=== PATIENT | female | born 1970 | race Caucasian/White ===

== ENCOUNTER 2024-09-06 10:00 | Outpatient (CLI) | payer BC, SELFPAY ==
[2024-09-06 10:26] LABS: Albumin Level 4.7 g/dL (3.5-5.1); Alkaline Phosphatase 85 U/L (38-126); Anion Gap 3 mmol/L (4-12); Aspartate Amino Transferase 20 U/L (14-36); Bilirubin,Total 0.8 mg/dL (0.2-1.3); Blood Urea Nitrogen 13 mg/dL (7-17); Calcium 9.7 mg/dL (8.4-10.2); Carbon Dioxide 30 mmol/L (22-30); Chloride 106 mmol/L (98-107); Cholesterol 181 mg/dL (0-200); Estimated Glomerular Filt Rate > 60; Glucose 104 mg/dL (65-110); HDL Direct 75 mg/dL; Sodium 139 mmol/L (137-145); Triglycerides 88 mg/dL (<150)
[2024-09-06 10:27] LABS: Alanine Aminotransferase < 6 U/L (6-35)
[2024-09-06 10:38] LABS: LDL Cholesterol Direct 64 mg/dL
[2024-09-06 11:02] LABS: Free T4 Free Thyroxine 1.31 ng/dL (0.78-2.19)
== END 2024-09-06 10:01 | disposition home or self-care (01) ==
LOC: ANHLAB 10:02
PROVIDERS: PCP Family Medicine; Visit Provider Student in an Organized Health Care Education/Training Program
DX: G20.A1 Parkinson's disease without dyskinesia, without mention of fluctuations (principal); Z00.00 Encounter for general adult medical examination without abnormal findings; Z13.220 Encounter for screening for lipoid disorders; R63.5 Abnormal weight gain
CPT/HCPCS: 36415; 80053; 80061; 84439; 84443

== ENCOUNTER 2024-12-11 01:07 | Day surgery (SDC) | payer BC, SELFPAY ==
[2024-12-04 08:21] VITALS: BMI 27.6
--- OUTSIDE RECORDS SUMMARY | 2024-12-11 01:10 | XMS_ITS | Clinical Summary ---
Author Organization [facility] [place] Address [address] [place] [address] Care Team Providers Care Director Of Materials Management Name Role Phone Zenaida Bunch MD Primary Care Provider [phone] Jeannette Bernal DPT Unavailable [phone] Allergies Active Allergy Reactions Criticality Noted Date Comments Penicillins Unknown 05/15/2020 Reaction as a child, unknown reaction Medications rOPINIRole (REQUIP) 0.25 mg tablet Take 1 tablet (0.25 mg total) by mouth 2 (two) times a day 180 tablet 1 4 Active carbidopa-levodop a (SINEMET) 25-100 mg per tabletIndications :Parkinsonism Take 2 tablets by mouth 4 (four) times a day 720 tablet 3 4 Active acetaminophen (TYLENOL) 325 mg tabletIndications :Fever,Pain Take 2 tablets (650 mg total) by mouth every 4 (four) hours as needed for pain 4 Active amantadine (SYMMETREL) 100 mg capsuleIndication s:Idiopathic Parkinsonism Take 1 capsule (100 mg total) by mouth 3 (three) times a day 270 capsule 1 4 Active Active Problems Problem Noted Date Diagnosed Date S/P deep brain stimulator placement 06/27/2024 Assessment & Plan (11/06/2024 10:41 AM ALUMINUM MOLDING MACHINE OPERATOR): Ms. Silvia Heath is a 54 y.o. 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 In addition she had walking, hypophonia, hypomimia, and micrographia. She first developed asymmetric resting tremor in 2007 followed over the next few years by action tremor, bradykinesia, rigidity, hypophonia, hypomimia, and micrographia. She was diagnosed with IPD in 2008 and was prescribed carbidopa/levodopa IR 25/100 and ropinirole 1 mg with good response. In 2019, she developed motor fluctuations with wearing off that affected her ADLs and ability to work. At the time of this evaluation, the motor benefit from each dose of carbidopa/levodopa IR 25/100 2 tablets (that she took every 5 hours) lasted for only about 3 hours. She did not tolerate the addition of more dopaminergic therapy which caused dyskinesias that were bothersome and characterized by generalized chorea that could be painful, and was already taking ropinirole 0.25 mg and amantadine 100 mg as adjunctive therapy. She had resting tremor, action tremor, bradykinesia, rigidity, walking, hypophonia, hypomimia, and micrographia which affect her ADLs, job performance, and quality of life in the OFF state. Increasing medications has not been tolerable secondary to dyskinesias that were bothersome and characterized by generalized chorea that could be painful, while decreasing any of them will worsen her already bothersome resting tremor, action tremor, bradykinesia, rigidity, walking, hypophonia, hypomimia, and micrographia. She underwent bilateral STN DBS surgery on 05/28/24 ( stage 1 ) and 06/07/24 ( stage 2 ) with Dr Francisco with excellent benefit. She reports she ever notices any tremor now and she was raya to sleep better since she did not have tremor at night. She did not have daily dystonia in her left foot anymore. Today in med OFF state she had bilateral left foot tremor. She also had some bradykinesia and rigidity. Her gait was smooth and she had good postural stability. Today we interrogated her dbs and opted to give her an increase in group A. Her previous setting was in group B to return in case of delayed side effects. She tolerated the changes well without any side effects. She had definite improvement in tremor after the change. Full system check was WNL. She had a rechargeable ipg which she charged once a week. She was overall having some bothersome dyskinesia. We discussed she can reduce her c/l to 1 tab with each dose if she was having dyskinesia. She was no longer taking Ropinerole. She can take Amantadine bid instead of tid if she was not having bothersome dyskinesia. Overall she remained very pleased with benefit from dbs therapy. REQS 1. Keep stimulators turned on and charged at all times. 2. May return to previous setting incase of delayed side effects 3.Can reduce c/L to 1 tab with each dose. Can take Amantadine bid if not having bothersome dyskinesia 4. Continue fall and swallow precautions 5.Exercise as tolerated Assessment & Plan (10/09/2024 10:34 AM ALUMINUM MOLDING MACHINE OPERATOR): Ms. Silvia Heath is a 54 y.o. 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 In addition she had walking, hypophonia, hypomimia, and micrographia. She first developed asymmetric resting tremor in 2007 followed over the next few years by action tremor, bradykinesia, rigidity, hypophonia, hypomimia, and micrographia. She was diagnosed with IPD in 2008 and was prescribed carbidopa/levodopa IR 25/100 and ropinirole 1 mg with good response. In 2019, she developed motor fluctuations with wearing off that affected her ADLs and ability to work. At the time of this evaluation, the motor benefit from each dose of carbidopa/levodopa IR 25/100 2 tablets (that she took every 5 hours) lasted for only about 3 hours. She did not tolerate the addition of more dopaminergic therapy which caused dyskinesias that were bothersome and characterized by generalized chorea that could be painful, and was already taking ropinirole 0.25 mg and amantadine 100 mg as adjunctive therapy. She had resting tremor, action tremor, bradykinesia, rigidity, walking, hypophonia, hypomimia, and micrographia which affect her ADLs, job performance, and quality of life in the OFF state. Increasing medications has not been tolerable secondary to dyskinesias that were bothersome and characterized by generalized chorea that could be painful, while decreasing any of them will worsen her already bothersome resting tremor, action tremor, bradykinesia, rigidity, walking, hypophonia, hypomimia, and micrographia. She underwent bilateral STN DBS surgery on 05/28/24 ( stage 1 ) and 06/07/24 ( stage 2 ) with Dr Francisco with excellent benefit. She reports she ever notices any tremor now and she was raya to sleep better since she did not have tremor at night. She did not have daily dystonia in her left foot anymore. She has only noticed it once in the last month when off meds but immediately resolved once she took her meds. Today in med OFF state she had bilateral left foot tremor. She also had some bradykinesia and rigidity. Her gait was smooth and she had good postural stability. Today we interrogated her dbs and opted to give her an increase in group A. Her previous setting was in group B to return in case of delayed side effects. She tolerated the changes well without any side effects. She had definite improvement in tremor after the change. Full system check was WNL. She had a rechargeable ipg which she charged once a week. She was overall having some bothersome dyskinesia. We discussed she can reduce her c/l to 1 tab with each dose and if she still continues to have it she can also reduce Ropinirole to just once a day in the morning. Overall she remained very pleased with benefit from dbs therapy. REQS 1. Keep stimulators turned on and charged at all times 2.Can reduce c/L to 1 tab with each dose. Same Amantadine . Can reduce Ropinirole to once a day if she continues to have bothersome Dyskinesia. 3. Continue fall and swallow precautions 4. Physical therapy when DBS settings further optimized Assessment & Plan (08/28/2024 3:29 PM ALUMINUM MOLDING MACHINE OPERATOR): Ms. Silvia Heath is a 54 y.o. 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 In addition she had walking, hypophonia, hypomimia, and micrographia. She first developed asymmetric resting tremor in 2007 followed over the next few years by action tremor, bradykinesia, rigidity, hypophonia, hypomimia, and micrographia. She was diagnosed with IPD in 2008 and was prescribed carbidopa/levodopa IR 25/100 and ropinirole 1 mg with good response. In 2019, she developed motor fluctuations with wearing off that affected her ADLs and ability to work. At the time of this evaluation, the motor benefit from each dose of carbidopa/levodopa IR 25/100 2 tablets (that she took every 5 hours) lasted for only about 3 hours. She did not tolerate the addition of more dopaminergic therapy which caused dyskinesias that were bothersome and characterized by generalized chorea that could be painful, and was already taking ropinirole 0.25 mg and amantadine 100 mg as adjunctive therapy. She had resting tremor, action tremor, bradykinesia, rigidity, walking, hypophonia, hypomimia, and micrographia which affect her ADLs, job performance, and quality of life in the OFF state. Increasing medications has not been tolerable secondary to dyskinesias that were bothersome and characterized by generalized chorea that could be painful, while decreasing any of them will worsen her already bothersome resting tremor, action tremor, bradykinesia, rigidity, walking, hypophonia, hypomimia, and micrographia. She underwent bilateral STN DBS surgery on 05/28/24 ( stage 1 ) and 06/07/24 ( stage 2 ) with Dr Francisco with excellent benefit. She reports she ever notices any tremor now and she was raya to sleep better since she did not have tremor at night. She did not have daily dystonia in her left foot anymore. She has only noticed it once in the last month when off meds but immediately resolved once she took her meds. Today in med OFF state she had severe right hand and leg tremor and mild tremor in her left hand. She had some bradykinesia and rigidity. Her gait was smooth and she had good postural stability. Today we interrogated her dbs and opted to give her an increase in group A. Her previous setting was in group B to return in case of delayed side effects. She tolerated the changes well without any side effects. She had definite improvement in tremor after the change. Full system check was WNL. She had a rechargeable ipg which she charged once a week. We reviewed using the patient net programmer analyst how to change groups and check the charge status. Overall she remained very pleased with benefit from dbs therapy. REQS 1. Keep stimulators turned on and charged at all times 2.Can reduce c/L to 1.5 tab with each dose. Same Amantadine and Ropinirole. Okay to adjust C/L by 1/2 tab with dyskinesia/ dystonia 3. Continue fall and swallow precautions 4. Physical therapy when DBS settings further optimized Assessment & Plan (07/29/2024 11:41 AM ALUMINUM MOLDING MACHINE OPERATOR): Ms. Silvia Heath is a 54 y.o. 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 In addition she had walking, hypophonia, hypomimia, and micrographia. She first developed asymmetric resting tremor in 2007 followed over the next few years by action tremor, bradykinesia, rigidity, hypophonia, hypomimia, and micrographia. She was diagnosed with IPD in 2008 and was prescribed carbidopa/levodopa IR 25/100 and ropinirole 1 mg with good response. In 2019, she developed motor fluctuations with wearing off that affected her ADLs and ability to work. At the time of this evaluation, the motor benefit from each dose of carbidopa/levodopa IR 25/100 2 tablets (that she took every 5 hours) lasted for only about 3 hours. She did not tolerate the addition of more dopaminergic therapy which caused dyskinesias that were bothersome and characterized by generalized chorea that could be painful, and was already taking ropinirole 0.25 mg and amantadine 100 mg as adjunctive therapy. She had resting tremor, action tremor, bradykinesia, rigidity, walking, hypophonia, hypomimia, and micrographia which affect her ADLs, job performance, and quality of life in the OFF state. Increasing medications has not been tolerable secondary to dyskinesias that were bothersome and characterized by generalized chorea that could be painful, while decreasing any of them will worsen her already bothersome resting tremor, action tremor, bradykinesia, rigidity, walking, hypophonia, hypomimia, and micrographia. She underwent bilateral STN DBS surgery on 05/28/24 ( stage 1 ) and 06/07/24 ( stage 2 ) with Dr Ayden with excellent benefit. She reports she ever notices any tremor now and she was raya to sleep better since she did not have tremor at night. She did not have daily dystonia in her left foot either. She has only noticed it once in the last month when off meds but immediately resolved once she took her meds. Today in med OFF state she had severe right hand and leg tremor and mild tremor in her left hand. She had some bradykinesia and rigidity. Her gait was smooth and she had good postural stability. Today we interrogated her dbs and opted to give her an increase in group A. Her previous setting was in group B to return in case of delayed side effects. She tolerated the changes well without any side effects. She had definite improvement in tremor after the change. Full system check was WNL. She had a rechargeable ipg which she charged once a week. We reviewed using the patient net programmer analyst how to change groups and check the charge status. Overall she remained very pleased with benefit from dbs therapy. REQS 1. Keep stimulators turned on and charged at all times 2. Same C/L IR, Amantadine and Ropinirole. Okay to adjust C/L by 1/2 tab with dyskinesia/ dystonia 3. Continue fall and swallow precautions 4. Physical therapy when DBS settings further optimized Assessment & Plan (06/27/2024 10:42 AM CDT): Ms. Silvia Heath is a 54 y.o. 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 In addition she had walking, hypophonia, hypomimia, and micrographia. She first developed asymmetric resting tremor in 2007 followed over the next few years by action tremor, bradykinesia, rigidity, hypophonia, hypomimia, and micrographia. She was diagnosed with IPD in 2008 and was prescribed carbidopa/levodopa IR 25/100 and ropinirole 1 mg with good response. In 2018, she developed motor fluctuations with wearing off that affected her ADLs and ability to work. At the time of this evaluation, the motor benefit from each dose of carbidopa/levodopa IR 25/100 2 tablets (that she took every 5 hours) lasted for only about 3 hours. She did not tolerate the addition of more dopaminergic therapy which caused dyskinesias that were bothersome and characterized by generalized chorea that could be painful, and was already taking ropinirole 0.25 mg and amantadine 100 mg as adjunctive therapy. She had resting tremor, action tremor, bradykinesia, rigidity, walking, hypophonia, hypomimia, and micrographia which affect her ADLs, job performance, and quality of life in the OFF state. Increasing medications has not been tolerable secondary to dyskinesias that were bothersome and characterized by generalized chorea that could be painful, while decreasing any of them will worsen her already bothersome resting tremor, action tremor, bradykinesia, rigidity, walking, hypophonia, hypomimia, and micrographia. She underwent bilateral STN DBS surgery on 05/28/24 ( stage 1 ) and 06/07/24 ( stage 2 ) with Dr Francisco and presents for initial programming along with her sister. In med OFF state she had severe termor in her right side of her body and moderate termor in her left side of her body. She had generalized tremor also in her head and body. She had some bradykinesia and rigidity. She had good gait and postural stability. She can have dystonia in her left foot but it was not evident today. At today's visit, each contact was tested for benefit and side effects. At contact 0 and 1 she did not have any benefit for tremor and had facial pulling. She had mild benefit in contact 2 and much improved tremor control in contact 3. She was getting some anxiety during the programming. We had her take her meds and within 1 minute her tremor was slowly starting to get better. We reviewed all the contacts again as she was getting ON with her meds and she seemed to have the best benefit for her symptoms at contact 3. We opted to leave this as the final contact . She did not have facial pulling at this contact till we pushed to little higher mA. She tolerated today's programming denying paresthesia, tightening dystonia, change in speech, or balance. Full system check was WNL. Final setting for both dbs : Case+ 3 ALL- 1.5 mA 60 185. At this setting she had much improved overall tremor. I warned her that he may develop dyskinesia/ dystonia in the next few hours to days after today's adjustment of dbs parameters. She was encouraged to adjust levodopa by 0.5 tab as needed. She was instructed about the contraindicated procedures in the context of DBS treatment, including the need to call our office should an MRI be needed; to avoid diathermy, therapeutic ultrasound, and chiropractic manipulation of the head and neck. She has the [employer] rechargeable ipg , we reviewed how to charge her dbs and how to use the patient net programmer analyst to manipulate and assess the status of her stimulators. REQS 1. Keep stimulators turned on and charged at all times 2. Same C/L IR, Amantadine and Ropinirole. Okay to adjust C/L by 1/2 tab with dyskinesia/ dystonia 3. Continue fall and swallow precautions 4. Physical therapy when DBS settings further optimized Parkinson's disease, unspeci fied whether dyskinesia present, unspecified whether manifestations fluctuate 05/28/2024 Parkinson's disease 05/15/2020 Assessment & Plan (01/23/2024 12:25 PM CDT): Images from the original note were not included. Ms. Silvia Heath presented for ON/OFF carbidopa/levodopa evaluation for determination of candidacy for bilateral subthalamic nucleus (STN) deep brain stimulation surgery for Parkinson disease. After overnight withdrawal of dopaminergic medications she was evaluated in the OFF state and found to have a total UPDRS III (Unified Parkinson Disease Rating Scale Subscale III) of 62.5/108. She then received 3.25 tablets of carbidopa/levodopa 25/100. In the ON state his UPDRS III score improved to 17/108, but the ON state was complicated by moderate generalized dyskinesias, without sedation, without upset stomach and without psychosis. As such from a motor standpoint she was a good candidate for bilateral STN DBS surgery. She will be seen and evaluated by Dr. Francisco on 03/11/24 who will give her a tentative date for stage 1 bilateral STN DBS surgery. Stage 2 should occur 1 week later. She was evaluated by Dr. Elkins for neuropsychological testing and the results are pending. We will proceed with the above date for bilateral STN DBS should she pass neuropsychological testing. She will have initial programming 2 - 3 weeks after stage 2 surgery. I again discussed the performance of the surgery including arriving in the OFF medication state, head shaving, Leksell frame placement under local anesthesia, MRI, skin incision and twist drill placement under local anesthesia, microelectrode recording, DBS testing, postoperative CT scanning and post-operative care with medication administration and overnight neuro ICU, critical care area or neuro stepdown unit care after each surgery. I also again discussed with him and his sister in law. The risk for side effects including but not limited to intracranial hemorrhage, stroke, infection and as well as dyskinesia, dystonia and dysarthria. They understood and wished to progress with bilateral STN DBS surgery as scheduled. We discussed the pros and cons of the [employer] and [employer] deep brain systems including battery size, battery longevity, unilateral vs. bilateral, rechargeable vs. primary cell, remote programming features, and programming features. We decided to proceed using the [employer] implantable pulse generator (IPG). Ms. Silvia Heath and her niece and the DBS team preferred the chosen device due to battery life. Ms. Silvia Heath was a good candidate for rechargeable DBS therapy due to good cognition. A total of 30 minutes were spent face to face this patient during this visit, of which greater than 50% of the time was spent talking about the treatment and management of the symptoms. Prescribed medications: risks, benefits, potential medical consequences and complications ( side effects ), alternatives and indications for treatment were discussed. All questions were answered to satisfaction of patient and/or family members. Brian Freeman MD Assessment & Plan (12/20/2023 11:34 AM CDT): Images from the original note were not included. Ms. Silvia Heath is a 53 y.o. 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 In addition she had walking, hypophonia, hypomimia, and micrographia. She first developed asymmetric resting tremor in 2007 followed over the next few years by action tremor, bradykinesia, rigidity, hypophonia, hypomimia, and micrographia. She was diagnosed with IPD in 2008 and was prescribed carbidopa/levodopa IR 25/100 and ropinirole 1 mg with good response. In 2018, she developed motor fluctuations with wearing off that affected her ADLs and ability to work. The asymmetry of her symptoms, her definite response to levodopa and the absence of atypical features (such as prominent autonomic symptoms, cerebellar signs, long tract signs, significant eye movement abnormalities, etc) supports the diagnosis of idiopathic Parkinson disease and makes the diagnosis of other Parkinson Plus syndromes unlikely. The natural history of the illness and the treatment options (including the surgical ones) were extensively discussed with the patient and her family member. At the time of this evaluation, the motor benefit from each dose of carbidopa/levodopa IR 25/100 2 tablets (that she took every 5 hours) lasted for only about 3 hours. She did not tolerate the addition of more dopaminergic therapy which caused dyskinesias that were bothersome and characterized by generalized chorea that could be painful, and was already taking ropinirole 0.25 mg and amantadine 100 mg as adjunctive therapy. She had resting tremor, action tremor, bradykinesia, rigidity, walking, hypophonia, hypomimia, and micrographia which affect her ADLs, job performance, and quality of life in the OFF state. Increasing medications has not been tolerable secondary to dyskinesias that were bothersome and characterized by generalized chorea that could be painful, while decreasing any of them will worsen her already bothersome resting tremor, action tremor, bradykinesia, rigidity, walking, hypophonia, hypomimia, and micrographia. Accordingly, she has failed medical treatment and would be a good candidate for bilateral deep brain stimulation (DBS) of the subthalamic nucleus (STN), especially given her predominant symptoms of resting tremor, action tremor, bradykinesia, rigidity, walking, hypophonia, hypomimia, and micrographia. Indeed, she has no major medical illness and has little cognitive deficit by history and bedside exam. She will still need a pre-operative motor evaluation on and off medication and formal neuropsychological evaluation to establish her motor response to levodopa and the absence of a significant subclinical cognitive deficit. I discussed with her and her family member for over 30 minutes (1030 to 1130) all aspects of this procedure (including its preoperative evaluation with possible neuropsychological and in-patient motor evaluation, the actual performance of the procedure, the potential benefits and complications and the post-surgical programming sessions and medication changes). I answered all their questions pertaining to the procedure. She would like to proceed with further evaluation for subthalamic nucleus (STN) DBS Surgery. We discussed the pros and cons of the [employer] and [employer] deep brain systems including battery size, battery longevity, unilateral vs. bilateral, rechargeable vs. primary cell, remote programming features, and programming features. We decided to proceed using the [employer] implantable pulse generator (IPG). Ms. Silvia Heath and her niece and the DBS team preferred the chosen device due to battery life. Ms. Silvia Heath was a good candidate for rechargeable DBS therapy due to good cognition. Recommendations: 1. Refer to Frank Francisco MD for bilateral subthalamic nucleus (STN) for Parkinson disease. 2. Refer to Dr. Elkins for presurgical neuropsychological testing. 3. Plan for outpatient levodopa ON/OFF evaluation. 4. Send subthalamic nucleus (STN) DBS packet. 5. Continue current therapy per Dr. Freeman and resident clinic. 6. Encourage exercise. 7. Refer to local chapter of the APDA for education. Brian Freeman MD Assessment & Plan (05/17/2023 5:13 PM CDT): Silvia Heath is a 53 y.o. woman with idiopathic Parkinson's disease, stage 2. Her Parkinsonian symptoms are tremors, rigidity, bradykinesia, and anosmia. She was treated with carbidopa/levodopa over many years, however significant dyskinesias. At her last visit, we switched her carbidopa/levodopa to 25/100 mg formulation for better flexibility for dose titration and started her on amantadine after which her dyskinesias have significantly improved. She states her tremors are unchanged and her exam today is very similar to her exam 7 months ago. She states she is not bother by her tremor. We discussed GPi DBS again as a possible treatment option to treat both her dyskinesias and tremors. She would like to continue thinking about it. Patient reports that her restless legs symptoms have improved and she thinks they were likely dyskinesias and not restless legs syndrome. However, we will continue ropinirole, since it would help with her Parkinsonian symptoms and patient is tolerating it well. She does exercise 3 times a week which we advised her to continue since this is currently the only disease-modifying therapy for Parkinson's disease. She expressed an interest in participating in research studies. Plan: - Continue carbidopa/levodopa 25/100 mg 2 tab QID. Will consider increasing the dose in the future to 2.5 mg QID to optimize tremor control, however we will defer it at this time since patient states she is not bothered by her tremors and increasing the dose may worsen her dyskinesias. - Increase amantadine to 100 mg TID (add a noon time dose) to optimize controlling dyskinesias. - Continue ropinirole 0.25 mg BID. - Counseled on DBS as ultimate treatment for her tremors and dyskinesias. She expressed she would like to continue thinking about it. Discussed that we can set up a counseling appointment in the future whenever she feels ready for it. Assessment & Plan (11/08/2022 5:02 PM ALUMINUM MOLDING MACHINE OPERATOR): Silvia Heath is a 52 y.o. woman with idiopathic Parkinson's disease, stage 2. Her Parkinsonian symptoms are tremors, rigidity, bradykinesia, and anosmia. She was treated with carbidopa/levodopa over many years and the dose was recently decreased due to significant dyskinesias which were present during the visit today as well. We will switch her to 25/100 mg formulation for better flexibility for dose titration. She may experience increased benefit in controlling her tremors, however her dyskinesias may slightly get worse as this formulation will help more levodopa transmission to the PRESCHOOL ASSISTANT TEACHER. We will also start amantadine to treat her dyskinesias. We discussed about GPi DBS as a possible treatment option to treat both her dyskinesias and tremors. She would like to think about it. She reported having some difficulty with her swallowing and speech, therefore we will refer her to RURAL MAIL CONTRACTOR. She will also benefit from PT referral and starting exercise since this is currently the only disease-modifying therapy for Parkinson's disease. She expressed an interest in participating in research studies. Plan: - Switch carbidopa/levodopa 25/250 mg 1 tab QID to carbidopa/levodopa 25/100 mg 2.5 tab QID. May decrease to 2 tab QID if the patient feels the dose is too much or if dyskinesias get worse. - Start amantadine 100 mg daily for 1 week. Then increase to 100 mg BID. - Referral to PT and RURAL MAIL CONTRACTOR. - Counseled on exercise. - Patient is interested in participating in research. Assessment & Plan (11/12/2020 8:58 AM ALUMINUM MOLDING MACHINE OPERATOR): Patient is currently using increased dose of Sinemet 25/250 2 tablets q.i.d.. There has been some improvement relative to bradykinesia, gait festination, and rigidity but she has developed some interval dyskinesia. After discussing treatment strategies with her therapeutics, she wishes to continue her present regimen at this time as is as she says the dyskinesia are transient and not interfering with her activity needs. If that changes she will let me know. I will see her back in the office in 1 year. I have continued her present Sinemet regimen as is in the interim. Assessment & Plan (05/15/2020 10:24 AM CDT): Patient is presently on Sinemet 25/250 1-1/2 tablets q.i.d.. She has been noticing worsening tremor in both arms, right greater than left, over the past 3 months. Her examination confirm same. She has no tolerability with medication. I will increase her Sinemet to 25/250 2 tablets q.i.d. in an effort to further reduce her pill-rolling tremor and cogwheeling. She exhibits no gait festination or bradykinesia at this time. I will plan on seeing her back in 6 months for reassessment. Resolved Problems Problem Noted Date Diagnosed Date Resolved Date Restless leg syndrome 11/08/20222022 Assessment & Plan (11/08/2022 5:15 PM ALUMINUM MOLDING MACHINE OPERATOR): Plan: - Check iron panel and ferritin. Patient will get these labs at her PCP's office and will fax the results to our clinic. - Continue ropinirole 0.25 mg BID. Bilateral hand numbness 11/09/2021 09/0 02/2023 Encounters Date Type Department Care Team Description 12/03/2024 Telephone [facility] [address] [place] [address] [place] [address] Lisa Duarte RN 11/06/2024 9:30 AM ALUMINUM MOLDING MACHINE OPERATOR Procedure visit [facility] [address] [place] [address] [address]th [place] [address] Jerry, Naomi Zack, CAUSTIC CRESYLATE SHIFT SUPERINTENDENT S/P deep brain stimulator placement 10/25/2024 Telephone [facility] [address] [facility] 4th Floor [address] [place] [address] Unique Guevara 10/09/2024 9:30 AM ALUMINUM MOLDING MACHINE OPERATOR Procedure visit [facility] [address] [facility] Advanced Medicine 7th [place] [address] Naomi Edwards NP S/P deep brain stimulator placement (Primary Dx); Parkinson's disease, unspecified whether dyskinesia present, unspecified whether manifestations fluctuate (HCC) from Last 3 Months Surgical History Surgery Date Site/Laterality Comments INSERTION / REMOVAL CRANIAL DBS GENERATOR Medical History Medical History Date Comments Parkinson's disease (HCC) PONV (postoperative nausea and vomiting) mild nausea Family History Medical History Relation Name Comments No Known Problems Brother 1 No Known Problems Brother 2 Alzheimer's disease Father No Known Problems Mother Arthritis Sister 1 No Known Problems Sister 2 Anesthesia problems Neg Hx Relation Name Status Comments Brother 1 Alive Brother 2 Alive Father Mother Sister 1 Alive Sister 2 Alive Social History Tobacco Use Types Packs/Day Years Used Date Smoking Tobacco: Never Smokeless Tobacco: Never Tobacco Cessation:Counseling Given: Not Answered AUDIT-C Answer Date Recorded Q1: How often do you have a drink containing alcohol? Never 06/07/2024 Q2: How many drinks containi ng alcohol do you have on a typical day when you are drinking? Patient does not drink Q3: How often do you have si x or more drinks on one occasion? Never 06/07/2024 Personal Safety Answer Date Recorded Have you ever been in or are you currently in a harmful physical or emotional relationship or is someone making you feel afraid or unsafe? Denies 06/07/2024 Comments No Sex and Gender Information Value Date Recorded Sex Assigned at Not on file Legal Sex Female 8:04 PM ALUMINUM MOLDING MACHINE OPERATOR Gender Identity Female 11/11/2020 9:27 PM ALUMINUM MOLDING MACHINE OPERATOR Sexual Orientation Not on file Obstetrics History Last Filed Vital Signs Vital Sign Reading Time Taken Comments Blood Pressure 127/85 11/06/2024 9:45 AM ALUMINUM MOLDING MACHINE OPERATOR Pulse 83 11/06/2024 9:45 AM ALUMINUM MOLDING MACHINE OPERATOR Temperature 36.7 C (98 F) 11/06/2024 9:45 AM ALUMINUM MOLDING MACHINE OPERATOR Respiratory Rate 18 08/05/2024 8:23 AM ALUMINUM MOLDING MACHINE OPERATOR Oxygen Saturation 100% 08/05/2024 8:23 AM ALUMINUM MOLDING MACHINE OPERATOR Inhaled Oxygen Concentration - - Weight 70.3 kg (155 lb) 11/06/2024 9:45 AM ALUMINUM MOLDING MACHINE OPERATOR Height 162.6 cm (5' 4 ) 11/06/2024 9:45 AM ALUMINUM MOLDING MACHINE OPERATOR Body Mass Index 26.61 11/06/2024 9:45 AM ALUMINUM MOLDING MACHINE OPERATOR Plan of Treatment Health Maintenance Due Date Last Done Comments Breast Cancer Screening-Mammogram 1968 Cervical Cancer Screening 1968 Colon Cancer Screening-Colonoscopy 1968 Hepatitis C Screening 1968 DTaP/Tdap/Td Vaccine (1 - Tdap) 1979 Hepatitis B Screening 1986 Regular Well Visit/Exam 18-64 1986 Zoster Vaccine (1 of 2) 2018 Depression Screening 11/08/2023 11/08/2022 Covid-19 Vaccine (2023-2 5 season) 2024 12/31/2020, 12/10/2020 Influenza Vaccine (#1) 2024 Pneumococcal vaccine <65 Aged Out No longer eligible based on patient's age to complete this topic Medical Devices Implanted Type Area Glue Wheel Operator Device Identifier Shelf Expiration Date Model / Serial / Lot Medtronic Inc Lead Neurostim Deep Brain Perm Marker Sensight [id number] - [id number] - [id number] Implanted:Qty: 1 on 05/28/2024 by Marco A Francisco MD at [facility] Left: Cranial Medtronic Inc 05/01/2026 [id number] / [id number] / Medtronic Inc Lead Neurostim Deep Brain Perm No Marker Sensight [id number] - [id number] - [id number] Implanted:Qty: 1 on 05/28/2024 by Marco A Francisco MD at [facility] Right: Brain Medtronic Inc 03/01/2026 [id number] / [id number] / Sincere [employer] Inc 4 Hole Straight Mandible Regular Plate Bone Titanium Sterile 2mm - [id number] Implanted:Qty: 4 on 05/28/2024 by Marco A Francisco MD at [facility] Bilateral: Cranial Since[employer] Inc / / Since[employer] Inc Nikunj 2mm 5mm Self Drill High Torque [address] Midface Screw [id number] - [id number] Implanted:Qty: 8 on 05/28/2024 by Marco A Francisco MD at [facility] Bilateral: Cranial [employer] Inc [id number] / / Medtronic Inc Extension Deep Brain Permanent Mr Marker Sensight 60cm [id number] - [id number] - [id number] Implanted:Qty: 1 on 06/07/2024 by Marco A Francisco MD at [facility] Left: Head Medtronic Inc 04/29/2026 [id number] / [id number] / Medtronic Inc Extension Deep Brain Permanent Mr No Marker Sensight 60cm [id number] - [id number] - [id number] Implanted:Qty: 1 on 06/07/2024 by Marco A Francisco MD at [facility] Right: Head Medtronic Inc 04/29/2026 [id number] / [id number] / Medtronic Inc Neurostimulator Dbs Brainsense Percept Rechargeable [id number] - [id number] - [id number] Implanted:Qty: 1 on 06/07/2024 by Marco A Francisco MD at [facility] Left: Chest Medtronic Inc 04/07/2026 [id number] / [id number] / [place] [address] [facility] ANTHEM ACCESS CHOICE ANTHEM ACCESS CHOICE Advance Directives For more information, please contact: [phone] * Full Code (Latest Code Status on File) Date Activated Date Inactivated Comments 05/28/2024 12:29 PM 05/29/2024 4:45 PM Care Teams Director Of Materials Management Relationship Specialty Start Date End Date Zenaida Bunch MD PCP - General Family Medicine 04/20/20 Jeannette Bernal DPT [address] [facility] [address] [facility] [address] [place] [address] Physical Therapist Physical Therapy 01/03/23
--- OUTSIDE RECORDS SUMMARY | 2024-12-11 01:10 | XMS_ITS | Clinical Summary ---
Author Organization [facility] Address [address] [place] [id number] Care Team Providers Care Rag Cutting Machine Operator Name Role Phone Unavailable Primary Care Provider Unavailabl e Social History Tobacco Use Types Packs/Day Years Used Date Smoking Tobacco: Never Assessed Comments Unknown Sex and Gender Information Value Date Recorded Sex Assigned at Not on file Legal Sex Female 7:24 PM CDT Gender Identity Not on file Sexual Orientation Not on file Plan of Treatment Health Maintenance Due Date Last Done Comments Cervical Cancer Screening Pa p Smear (Age 30 to 64) Every 3 Years 1968 Colorectal Cancer Screening Colonoscopy (10 Years) 1968 Annual Physical 1971 Hepatitis C 1986 DTaP, Tdap and Td Vaccines ( 1 - Tdap) 1987 Hepatitis B Vaccines (1 of 3 - 19+ 3-dose series) 1987 Cervical Cancer Screening Pa p with HPV Testing (Age 30 to 64) Every 5 Years 1998 Cervical Cancer Screening with HPV 1998 Mammogram Screening 2008 Zoster Vaccines (1 of 2) 2018 COVID-19 Vaccine (2023-2 5 season) 2024 Influenza Adult (#1) 2024 Meningococcal B Vaccine Aged Out No l onger eligible based on patient's age to complete this topic Meningococcal Vaccine Aged Out No chiquis bryan eligible based on patient's age to complete this topic Pneumococcal Vaccine: Pediat rics (0 to 5 Years) and At-Risk Patients (6 to 64 Years) Aged Out No longer eligible b ased on patient's age to complete this topic RSV Immunizations Under 20 Months Aged Out No longer eligible based on patient's age to complete this topic
--- OUTSIDE RECORDS SUMMARY | 2024-12-11 01:10 | XMS_ITS | Encounter Summary ---
Author Organization [facility] Healthcare Address [address] [place] [address] Care Team Providers Care Maintenance Mechanic Helper Name Role Phone Zenaida Bunch MD Primary Care Provider [phone] Jeannette Bernal DPT Unavailable [phone] Encounter Details Date Type Department Care Team (Late st Contact Info) Description 10/25/2024 Telephone [facility] [address] [facility] Health 4th Floor [address] [place] [address] Unique Guevara Social History Tobacco Use Types Packs/Day Years Used Date Smoking Tobacco: Never Smokeless Tobacco: Never AUDIT-C Answer Date Recorded Q1: How often [...] on file Legal Sex Female 8:04 PM ROCK LATHER Gender Identity Female 11/11/2020 9:27 PM ROCK LATHER Sexual Orientation Not on file documented as of this encounter Plan of Treatment Not on file documented as of this encounter Visit Diagnoses Not on filedocumented in this encounter Care Teams Maintenance Mechanic Helper Relationship Specialty Start Date End Date Zenaida Bunch MD PCP - General Family Medicine 04/20/20 Jeannette Bernal DPT [address] [place] [address] Physical Therapist Physical Therapy 01/03/23 documented as of this encounter
--- OUTSIDE RECORDS SUMMARY | 2024-12-11 01:10 | XMS_ITS | Referral Summary ---
Author Organization [facility] Address [address] [place] [address] Care Team Providers Care Stoker Erector Name Role Phone Zenaida Bunch MD Primary Care Provider [phone] Jeannette Bernal DPT Unavailable [phone] Encounters Date Type Department Care Team Description 12/03/2024 Telephone [facility] Movement Disorders [address] [place] [phone] Lisa Duarte RN 11/06/2024 9:30 AM DIRECTOR SEARCH Procedure visit [facility] Disorders [address] [place] [phone] Naomi Edwards NP S/P deep brain stimulator placement 10/25/2024 Telephone [facility] [address] [place] [address] Outpatient Health 4th Floor [address] [place] [phone] Unique Guevara 10/09/2024 9:30 AM DIRECTOR SEARCH Procedure visit [facility] Disorders [address] [place] [address] Advanced Medicine [address] [place] [phone] Naomi Edwards NP S/P deep brain stimulator placement (Primary Dx); Parkinson's disease, unspecified whether dyskinesia present, unspecified whether manifestations fluctuate (HCC) from Last 3 Months Allergies Active Allergy Reactions Criticality Noted Date [...] 06/27/2024 Assessment & Plan (11/06/2024 10:41 AM DIRECTOR SEARCH): Ms. Silvia Heath is a 54 y.o. [...] tolerated Assessment & Plan (10/09/2024 10:34 AM DIRECTOR SEARCH): Ms. Silvia Heath is a 54 y.o. [...] optimized Assessment & Plan (08/28/2024 3:29 PM DIRECTOR SEARCH): Ms. Silvia Heath is a 54 y.o. [...] a week. We reviewed using the patient cnc machine programmer how to change groups and check the [...] optimized Assessment & Plan (07/29/2024 11:41 AM DIRECTOR SEARCH): Ms. Silvia Heath is a 54 y.o. [...] a week. We reviewed using the patient cnc machine programmer how to change groups and check the [...] the head and neck. She has the Sano Percept rechargeable ipg , we reviewed how to charge her dbs and how to use the patient cnc machine programmer to manipulate and assess the status of [...] discussed the pros and cons of the [employer] and Medtronic deep brain systems including battery size, battery longevity, unilateral vs. bilateral, rechargeable vs. primary cell, remote programming features, and programming features. We decided to proceed using the [employer] implantable pulse generator (IPG). Ms. Silvia Heath [...] discussed the pros and cons of the [employer] and Sano deep brain systems including battery size, battery longevity, unilateral vs. bilateral, rechargeable vs. primary cell, remote programming features, and programming features. We decided to proceed using the Sano Percept RC implantable pulse generator (IPG). Ms. Silvia Heath [...] it. Assessment & Plan (11/08/2022 5:02 PM DIRECTOR SEARCH): Silvia Heath is a 52 y.o. woman [...] will help more levodopa transmission to the DIRECTOR OF COUNSELING. We will also start amantadine to treat her dyskinesias. We discussed about GPi DBS as a possible treatment option to treat both her dyskinesias and tremors. She would like to think about it. She reported having some difficulty with her swallowing and speech, therefore we will refer her to GOLF COURSE PATROLLER. She will also benefit from PT referral [...] mg BID. - Referral to PT and GOLF COURSE PATROLLER. - Counseled on exercise. - Patient is interested in participating in research. Assessment & Plan (11/12/2020 8:58 AM DIRECTOR SEARCH): Patient is currently using increased dose of [...] 11/08/20222022 Assessment & Plan (11/08/2022 5:15 PM DIRECTOR SEARCH): Plan: - Check iron panel and ferritin. Patient will get these labs at her PCP's office and will fax the results to our clinic. - Continue ropinirole 0.25 mg BID. Bilateral hand numbness 11/09/202102/2023 Social History Tobacco Use Types Packs/Day Years [...] on file Legal Sex Female 8:04 PM DIRECTOR SEARCH Gender Identity Female 11/11/2020 9:27 PM DIRECTOR SEARCH Sexual Orientation Not on file Last Filed Vital Signs Vital Sign Reading Time Taken Comments Blood Pressure 127/85 11/06/2024 9:45 AM DIRECTOR SEARCH Pulse 83 11/06/2024 9:45 AM DIRECTOR SEARCH Temperature 36.7 C (98 F) 11/06/2024 9:45 AM DIRECTOR SEARCH Respiratory Rate 18 08/05/2024 8:23 AM DIRECTOR SEARCH Oxygen Saturation 100% 08/05/2024 8:23 AM DIRECTOR SEARCH Inhaled Oxygen Concentration - - Weight 70.3 kg (155 lb) 11/06/2024 9:45 AM DIRECTOR SEARCH Height 162.6 cm (5' 4 ) 11/06/2024 9:45 AM DIRECTOR SEARCH Body Mass Index 26.61 11/06/2024 9:45 AM DIRECTOR SEARCH Plan of Treatment Not on file Medical Devices Implanted Type Area Obiee Consultant Device Identifier Shelf Expiration Date Model / Serial / Lot Medtronic Inc Lead Neurostim Deep Brain Perm Marker Sensight [id number] - [id number] - [id number] Implanted:Qty: 1 on 05/28/2024 by Marco A Francisco MD at [facility] Left: Cranial Medtronic Inc 05/01/2026 [id number] / [id number] / Medtronic Inc Lead Neurostim Deep Brain Perm No Marker Sensight [id number] - [id number] - [id number] Implanted:Qty: 1 on 05/28/2024 by Marco A Francisco MD at [facility] Right: Brain Medtronic Inc 03/01/2026 [id number] / [id number] / Sincere [employer] Inc 4 Hole Straight Mandible Regular Plate Bone Titanium Sterile 2mm - [id number] Implanted:Qty: 4 on 05/28/2024 by Marco A Francisco MD at [facility] Bilateral: Cranial [employer] / / Since[employer] Inc Nikunj 2mm 5mm Self Drill High Torque [address] Midface Screw [id number] - [id number] Implanted:Qty: 8 on 05/28/2024 by Marco A Francisco MD at [facility] Bilateral: Cranial [employer] Inc [id number] / / Medtronic Inc Extension Deep Brain Permanent Mr Marker Sensight 60cm [id number] - [id number] - [id number] Implanted:Qty: 1 on 06/07/2024 by Marco A Francisco MD at [facility] Left: Head Medtronic Inc 04/29/2026 [id number] / [id number] / Medtronic Inc Extension Deep Brain Permanent Mr No Marker Sensight 60cm [id number] - [id number] - [id number] Implanted:Qty: 1 on 06/07/2024 by Marco A Francisco MD at [facility] Right: Head Medtronic Inc 04/29/2026 [id number] / [id number] / Medtronic Inc Neurostimulator Dbs Brainsense Percept Rechargeable [id number] - [id number] - [id number] Implanted:Qty: 1 on 06/07/2024 by Marco A Francisco MD at [facility] Left: Chest Medtronic Inc 04/07/2026 [id number] / [id number] / [place] [address] ANTHEM ACCESS CHOICE ANTHEM ACCESS CHOICE Advance Directives For more information, please contact: [phone] * Full Code (Latest Code Status on File) Date Activated Date Inactivated Comments 05/28/2024 12:29 PM 05/29/2024 4:45 PM Care Teams Stoker Erector Relationship Specialty Start Date End Date Zenaida Bunch MD PCP - General Family Medicine 04/20/20 Jeannette Bernal, DPT [address] [facility] [address] [place] [address] Physical Therapist Physical Therapy 01/03/23
[2024-12-11 06:08] VITALS: BP 124/92; PULSE 94; RESP 14; TEMP 35.6; O2SAT 100; BMI 26.1
[2024-12-11] MEDS: LACTATED RINGERS 1,000 ML 150 ML IV CONT (06:23)
--- NOTE | 2024-12-11 07:04 | WPDANESEPPF ---
Anes - Initial Pre Proc Eval Procedure: Operation Date: 12/11/24 07:30 Proposed Procedures p Colonoscopy - Derik Rodriguez MD Date/Time: 12/11/24 07:04 Surgeon: Derik Rodriguez MD Pre Op Diagnosis: screening malignant neoplasm of colon Patient Data Age: 54 Gender: F Height: 1.63 m Weight: 69 kg Last Vital Signs Temp 35.6 C L 12/11/24 06:08 Pulse 94 12/11/24 06:08 Resp 14 12/11/24 06:08 BP 124/92 H 12/11/24 06:08 Pulse Ox 100 12/11/24 06:08 O2 Del Method Room Air 12/11/24 06:08 Allergies Allergy/AdvReac Type Severity Reaction Status Date / Time Penicillins Allergy Unknown Swelling Verified 12/11/24 06:13 Home Medications ?Medication ?Instructions ?Recorded ?Confirmed ?Type amantadine HCl 100 mg capsule 100 mg PO TID 09/03/24 12/11/24 History calcium 600 mg (as 1 tablet PO DAILY 12/04/24 12/11/24 History carbonate)-vitamin D3 5 mcg (200 unit) tablet (Calcium 600 + D(3)) carbidopa 25 mg-levodopa 250 mg 2 tablet PO TID 12/04/24 12/11/24 History disintegrating tablet Patient hx anesthesia problems: none Family hx anesthesia problems: none Results Review: All pre-operative results and documents have been reviewed as part of the pre-operative evaluation. FOR[facility]LY [facility] Past Medical History Medical History (Updated 09/03/24 @ 09:37 by Radha Kee PA-C) Parkinsons disease Family History Family History (Updated 09/03/24 @ 09:33 by Austin Mayorga CMA) Grandparent Diabetes mellitus Mother Hypertension Father Family history of Alzheimer's disease Sibling Breast cancer Social History Social History (Updated 09/03/24 @ 09:35 by Austin Mayorga CMA) Smoking status: Never smoker Second hand tobacco smoke exposure: No Alcohol intake: never Substance use: never Substance use type: does not use Do You Feel Safe in your Home?: Yes Lack of Transportation: No Lack of Food: Never True Current Housing: I Have Housing Concerned About Future Housing: No Difficulty Paying Gas/Electric Bills: No Difficulty Paying for Meds: No Currently Unemployed: No Living arrangements: with family Gender identity (if verbalized by the patient): Female Sexual Orientation (if Verbalized by the Patient): Straight or Heterosexual Spiritual care concerns: No Anes - Eval Final PreProcedure Day of Procedure 12/11/24 07:04 Patient weight: overweight Heart: regular rate and rhythm Lungs: clear to auscultation Airway: Mallampati scale class II Neurological: alert and oriented Last oral intake: >/= 8 hours ASA classification: III Emergent: no Anesthetic plan: proceed Anesthesia type and monitoring: general GIVS and standard monitoring Results Review: All pre-operative results and documents have been reviewed as part of the pre-operative evaluation. Informed Consent: The patient's anesthetic plan and its attendant risks and benefits were discussed with the patient/family/POA. Questions were solicited and answers provided to the satisfaction of the patient/family/POA.
--- NOTE | 2024-12-11 07:24 | PM.HPGS ---
History of Present Illness History of Present Illness Consent: Risks, benefits, and alternatives have been discussed and questions answered. Patient agrees to proceed with procedure. Chief complaint: screening malignant neoplasm of colon Narrative: Silvia Heath is a 54 year old female here for first screening colonoscopy Review of Systems Review of Systems: All systems reviewed & are unremarkable except as noted in HPI and below PMFSH Past Medical History Medical History (Updated 12/11/24 @ 07:25 by Derik Rodriguez MD) Colon cancer screening Parkinsons disease Family History Family History (Updated 09/03/24 @ 09:33 by Austin Mayorga CMA) Grandparent Diabetes mellitus Mother Hypertension Father Family history of Alzheimer's disease Sibling Breast cancer Social History Social History (Updated 09/03/24 @ 09:35 by Austin Mayorga CMA) Smoking status: Never smoker Second hand tobacco smoke exposure: No Alcohol intake: never Substance use: never Substance use type: does not use Do You Feel Safe in your Home?: Yes Lack of Transportation: No Lack of Food: Never True Current Housing: I Have Housing Concerned About Future Housing: No Difficulty Paying Gas/Electric Bills: No Difficulty Paying for Meds: No Currently Unemployed: No Living arrangements: with family Gender identity (if verbalized by the patient): Female Sexual Orientation (if Verbalized by the Patient): Straight or Heterosexual Spiritual care concerns: No Meds Home Medications and Allergies Home Medications ?Medication ?Instructions ?Recorded ?Confirmed ?Type amantadine HCl 100 mg capsule 100 mg PO TID 09/03/24 12/11/24 History calcium 600 mg (as 1 tablet PO DAILY 12/04/24 12/11/24 History carbonate)-vitamin D3 5 mcg (200 unit) tablet (Calcium 600 + D(3)) carbidopa 25 mg-levodopa 250 mg 2 tablet PO TID 12/04/24 12/11/24 History disintegrating tablet Allergies Allergy/AdvReac Type Severity Reaction Status Date / Time Penicillins Allergy Unknown Swelling Verified 12/11/24 06:13 Vital Signs Vital Signs - 24 hr 12/11/24 06:08 Temperature 96.1 F L Pulse Rate 94 Respiratory Rate 14 Blood Pressure 124/92 H Pulse Oximetry 100 Oxygen Delivery Room Air Exam Const: General: comfortable and no acute distress HENMT: Face/Nose/Sinus: Normal nares present Eyes: General: appearance normal, both eyes and all related structures Neck: Neck: no JVD Resp: Auscultation: clear to auscultation bilaterally Cardio: Rate: regular rate Rhythm: regular rhythm GI: Inspection: non-distended GI Palp: Yes Soft to palpation Skin: General skin exam: normal color Neuro: General: gait normal Speech: normal speech Extrem: General: normal to inspection Psych: Mental Status: mental status grossly normal Assessment and Plan Assessment and plan (1) Colon cancer screening: Code(s): Z12.11 - Encounter for screening for malignant neoplasm of colon Status: Acute Assessment and Plan: colonoscopy
[2024-12-11 07:40] VITALS: BP 97/67; PULSE 76; RESP 16; O2SAT 100
[2024-12-11 07:50] VITALS: BP 108/67; PULSE 76; RESP 15; O2SAT 100
[2024-12-11 08:00] VITALS: BP 100/74; PULSE 67; RESP 19; O2SAT 100
== END 2024-12-11 08:18 | disposition home or self-care (01) ==
PROVIDERS: PCP Family Medicine; Referring Provider Student in an Organized Health Care Education/Training Program; Visit Provider Internal Medicine Gastroenterology
PROC: 0DJD8ZZ Inspection of Lower Intestinal Tract, Via Natural or Artificial Opening Endoscopic (ICD-10-PCS; CPT 45378; principal; 2024-12-11 07:30)
DX: Z12.11 Encounter for screening for malignant neoplasm of colon (principal); K57.30 Diverticulosis of large intestine without perforation or abscess without bleeding; G20.A1 Parkinson's disease without dyskinesia, without mention of fluctuations; Z80.3 Family history of malignant neoplasm of breast
CPT/HCPCS: 45378; J2704; J7120

== ENCOUNTER 2025-07-17 09:19 | Outpatient (CLI) | payer BC, SELFPAY ==
--- NOTE | ~2025-07-17 | MM_ITS ---
EXAMINATION: MM screening elen BI w lori HISTORY: Screening TECHNIQUE: Craniocaudal and mediolateral oblique 3-D tomosynthesis images were obtained and synthetic 2-D images were generated. CAD analysis was submitted and interpreted. COMPARISON: None provided, BREAST PARENCHYMAL COMPOSITION: The breasts are extremely dense, which lowers the sensitivity of mammography. FINDINGS: There is no evidence of suspicious mass, calcification, or architectural distortion to suggest malignancy in either breast. IMPRESSION: 1. No mammographic evidence of malignancy. 2. Recommend routine screening mammography in one year. BI-RADS Category 1: Negative Reviewed, dictated and finalized at location B. RAMMER
--- NOTE | ~2025-07-17 | DEXA_ITS ---
Bone Density Report Name: ANKITA MATHEWS Age: 55 Sex: Female Ethnicity: White Date of : 1970 Indication: postmenopausal; screening for osteoporosis; height loss; Referring Provider: ZULY ROWE Study: Bone densitometry was performed. Exam Date: July 17, 2025 Accession number: [id number] Bone Density: Region BMD T-score Z-score Classification AP Spine(L1-L4) 1.102 0.5 1.7 Normal Femoral Neck (Left) 0.654 -1.8 -0.6 Osteopenia Total Hip (Left) 0.732 -1.7 -0.9 Osteopenia Femoral Neck (Right) 0.613 -2.1 -1.0 Osteopenia Total Hip (Right) 0.707 -1.9 -1.1 Osteopenia Total Hip Mean 0.720 -1.8 -1.0 Osteopenia World Health Organization criteria for BMD impression classify patients as: Normal (T-score at or above -1.0), Osteopenia (T-score between -1.0 and -2.5), or Osteoporosis (T-score at or below -2.5). 10-year Fracture Risk(1): Major Osteoporotic Fracture 8.5% Hip Fracture 1.0% Reported Risk Factors: [place] (), Neck BMD=0.613, BMI=29.1 (1) FRAX(R) Version 3.08. Fracture probability calculated for an untreated patient. Fracture probability may be lower if the patient has received treatment. Clinical Information Provided by Patient: Has used the following medications: Vitamin D, Calcium Has the following medical conditions: PARKINSON'S DISEASE Patient maximum height was 64 Menopause Age: 52 No regular weight bearing exercise Drinks caffeinated beverages Onset of menses at age 11 Number of children 0 Impression: The patient has low bone mass, based on the Right Femoral Neck T-score. The patient has an estimated ten-year risk of hip fracture of 1% and an estimated ten-year risk of major fracture of 8.5%, based on the WHO FRAX algorithm. Discussion: BONE DENSITY IS LOW AT ONE OR MORE SKELETAL SITES. This patient's lowest T-score is low at one or more skeletal sites. It meets the World Health Organization's (WHO) criteria for ?low bone mass? (T-score between -1.0 and -2.5). The patient's 10-year risk of fracture as calculated by FRAX is less than the threshold where pharmacological therapy is recommended by the National Osteoporosis Foundation (NOF). However, all treatment decisions require clinical judgment and consideration of individual patient factors, including patient preferences, comorbidities, previous drug use, risk factors not captured in the FRAX model (e.g., frailty, falls, vitamin D deficiency, increased bone turnover, interval significant decline in bone density) and possible under or overestimation of fracture risk by FRAX. The patient should follow a healthful lifestyle (good nutrition with adequate calcium and vitamin D, and appropriate weight-bearing exercise). Follow-Up: Consider repeating this study in 2 to 3 years to reassess this patient's status, or sooner if there is some new clinical indication. Reported by: HAYLEE on 07/18/2025 2:54:00 PM. Reviewed, dictated and finalized at location A.
== END 2025-07-17 09:20 | disposition home or self-care (01) ==
LOC: MICIMG 09:19
PROVIDERS: PCP Family Medicine; Visit Provider Student in an Organized Health Care Education/Training Program
DX: Z12.31 Encounter for screening mammogram for malignant neoplasm of breast (principal); M85.89 Other specified disorders of bone density and structure, multiple sites; Z78.0 Asymptomatic menopausal state
CPT/HCPCS: 77063; 77067; 77080